=== PATIENT | female | born 1955 | race Caucasian/White ===

== ENCOUNTER 2024-04-22 16:04 | Inpatient (IN) | payer OTHER, SELFPAY ==
[2024-04-22] VITALS (11 sets, daily range): BP systolic 116–172; BP diastolic 56–85; BMI 24.3; BMI 24.9
[2024-04-22] MEDS: MORPHINE SULFATE 4 MG IV ×3 (10:27→14:49)
[2024-04-22] MEDS: ZOFRAN 4 MG IV (10:27)
--- NOTE | 2024-04-22 10:34 | ED.GENMED ---
History of Present Illness
General
Chief Complaint: Chest Pain
Source: patient and spouse
Time Seen by Provider: 04/22/24 09:51
History of Present Illness
History of Present Illness:
68-year-old female who presents with right flank/right mid back pain. Patient states she has had a cough for few weeks after recently having influenza. Patient is a history of collapsed lung as well as Hodgkin's lymphoma in remission. Patient
states that she is unable to lay back due to pain. Admits that she is not really short of breath but does hurt when she breathes deeply. Does hurt also when she moves. No rash noted by her. states that she did not sleep well last night.
Past History
Past History
ED Past Medical History: Cancer (Hodgkin's), HTN, Psychiatric (Depression) and Other (Hodgkins, 7 spontaneous Pneumothorax, Migraine)
ED Past Surgical History: Other (Splenectomy)
Social History
Tobacco: Former smoker
Alcohol: Occasional
Drug: None
Personal:
Living: with family
Employment: Not employed
Family History
Family History: Other (Noncontributory)
Phy Exam
Physical Exam
Physical Exam:
CONSTITUTIONAL Patient alert and oriented to person, place and time. Mild pain distress. Vital signs reviewed.
HEAD atraumatic, normocephalic.
EYES eyelids normal to inspection, Extraocular muscles intact, Conjunctiva normal, Sclera normal.
NECK normal range of motion, Trachea midline, no jugular venous distention.
RESPIRATORY CHEST No respiratory distress noted, Chest expansion equal, diminished at bilateral bases, obvious splinting noted
CARDIOVASCULAR regular rate and rhythm, Heart sounds normal.
ABDOMEN abdomen nontender, Bowel sounds normal. No distention.
BACK normal inspection, no obvious deformities, no rash noted, no gross tenderness
UPPER EXTREMITY range of motion normal, Motor strength normal, no cyanosis, no edema.
LOWER EXTREMITY range of motion normal, Motor strength normal, no cyanosis, no edema.
NEURO Speech normal, No focal motor deficits, Nikolay coma scale 15, Memory normal, Cranial Nerves intact to screening exam.
SKIN skin warm, dry, and normal in color.
Scores
Heart Score for Chest Pain Patients
STEMI patient?: Not applicable
Course
Orders/Labs/Results
Orders:
Orders
04/22/24 08:47
Electrocardiogram (*1) Urgent
Reason for Study: Chest Pain
EKG- Treatment ONCE
04/22/24 10:19
Morphine Sulfate 4 mg IV NOW STA
Ondansetron Injectable [Zofran] 4 mg IV NOW STA
CR Chest - 2 Views Urgent
Comment:
Reason For Exam: R cp, h/o PTX
04/22/24 10:26
Complete Blood Count/With Diff Urgent
Comprehensive Metabolic Panel Urgent
04/22/24 11:40
Morphine Sulfate 4 mg IV NOW STA
04/22/24 11:41
CT Chest Pe Study Urgent
Comment:
Reason For Exam: R sided cp
04/22/24 11:49
Diphenhydramine [Benadryl] 50 mg IV NOW STA
Hydrocortisone Sod Succinate [Solu-Cortef] 200 mg IV NOW STA
04/22/24 14:36
Apixaban [Eliquis] 10 mg PO NOW STA
04/22/24 14:37
CefTRIAXone [Rocephin] 1,000 mg IV NOW STA
Doxycycline [Vibramycin] 100 mg PO NOW STA
04/22/24 14:43
Morphine Sulfate 4 mg IV NOW STA
Abnormal Lab Results
04/22/24
10:26
WBC 15.9 H 10^3/uL
(4.8-10.8)
RBC 3.97 L 10^6/uL
(4.20-5.40)
MCH 31.5 H pg
(27.0-31.0)
Plt Count 458 H 10^3/uL
(130-400)
Abs Immat Gran (auto) 0.1 H 10^3/uL
(0-0.05)
Absolute Neuts (auto) 11.7 H 10^3/uL
(1.4-6.5)
Absolute Monos (auto) 1.4 H 10^3/uL
(0.1-0.6)
Lymphocytes % 17.2 L %
(20.5-51.1)
Glucose 113 H mg/dl
(70-99)
04/22/24 10:26
04/22/24 10:26
Vital Signs
Initial and Last Documented VS:
Initial Vital Signs
Temp Pulse Resp BP Pulse Ox
99.3 F 93 16 158/77 94
04/22/24 08:45 04/22/24 08:45 04/22/24 08:45 04/22/24 08:45 04/22/24 08:45
Last Documented Vital Signs
Temp Pulse Resp BP Pulse Ox
99.3 F 83 15 172/85 94
04/22/24 08:45 04/22/24 10:00 04/22/24 10:00 04/22/24 10:00 04/22/24 12:01
MDM/Problems Addressed
Differential Diagnosis Includes:
Pneumothorax, pulmonary embolism, pneumonia, intercostal muscle strain
MDM/Problems Addressed:
Acute pulmonary embolism, acute pneumonia
*Pulse Oximetry
Patient hypoxic: yes
*EKG
Interpreted by ED Provider?: Yes
Interpretation: normal
Rate: normal
Rhythm: sinus
[place]: normal axis
QRS Pattern: normal QRS
Ischemia: no ischemia
*Validation Intern Interpretation
Rate: normal
Interpretation: normal
Rhythm: sinus
*Critical Care Note
Total Time (30-74mins, 75-104mins- exclusive of procedures): Not Applicable
Data Reviewed
Source: patient and spouse
Prescriptions/Medications Considered But Not Given:
Consider heparin but I think reasonable to start Eliquis
Patient Management
Discussion with other providers: Hospitalist
Escalation/DeEscalation of care consider admission/obs:
68-year-old female presents with pleuritic right-sided pain. Found to be mildly hypoxic. CT shows small volume pulmonary emboli bilaterally. Also with slight leukocytosis, low-grade fever and coughing question whether could be component of
pneumonia. I do think is reasonable to treat her with antibiotics as well but given mild hypoxia and persistent pain, admit
2:51 PM patient admits that she had a penicillin allergy as a child. Given her multiple allergies I think it is reasonable to trial ceftriaxone. Unable to take fluoroquinolones. Unable to take vancomycin. Has no known cephalosporin allergy
ED Attending Note
-
Portions of this chart may have been created with voice recognition software.� Occasional wrong word or��sound alike� substitutions may have occurred due to the inherent limitations of voice recognition software.
Discharge Plan
Departure
Patient Disposition: Admit
Date of Disposition: 04/22/24
Time of Disposition: 14:35
Admit to: Telemetry
Presentation/result/management discussed w/ accepting MD/DO: Hospitalist
Discharge Problem:
Pulmonary embolism, Pneumonia
Prescriptions:
No Action
zolpidem 10 MG tablet
10 mg PO HS
losartan 50 mg Tablet
50 mg PO DAILY
escitalopram oxalate [Lexapro] 10 mg Tablet
10 mg PO DAILY
Collagen Skin Renewal 30-833.3 mg Tablet
1 tab PO DAILY
Super Beets
1 packet PO DAILY
Turmeric Powder
1 packet PO DAILY
Referrals:
Ayiana Zhang MD [Family Provider] -
Interventions
Interventions:
*Risk Screen - Suicide Last Done: 04/22/24 08:47
*Neglect/Abuse Screening Last Done: 04/22/24 08:47
*ED COVID-19 Vaccine History Last Done: 04/22/24 08:47
ED- Cardiac Assessment Last Done: 04/22/24 10:11
ED- Pulmonary Assessment Last Done: 04/22/24 10:11
Discharge Date and Time
Print Language: ESTONIAN
[2024-04-22 10:48] LABS: % Basophils 0.4 % (0-2); % Eosinophils 0.1 % (0-6); % Immature Granulocytes 0.5 % (0-0.5); % Lymphocytes 17.2 % (20.5-51.1); % Monocytes 8.5 % (1.7-9.3); % Neutrophils 73.3 % (42.2-75.2); Absolute Basophils 0.1 10^3/uL (0-0.2); Absolute Immature Granulocytes 0.1 10^3/uL (0-0.05); Absolute Lymphocytes 2.7 10^3/uL (1.2-3.4); Absolute Monocytes 1.4 10^3/uL (0.1-0.6); Absolute Neutrophils 11.7 10^3/uL (1.4-6.5); Hematocrit 37.9 % (37.0-47.0); Hemoglobin 12.5 g/dL (12.0-16.0); Mean Corpuscular Hgb 31.5 pg (27.0-31.0); Mean Corpuscular Volume 95.5 fL (81.0-99.0); Mean Platelet Volume 9.1 fL (7.4-10.4); Nucleated Red Blood Cells % 0 %; Platelet Count 458 10^3/uL (130-400); Red Blood Cell Count 3.97 10^6/uL (4.20-5.40); Red Cell Dist. Width 13.5 % (11.5-14.5); White Blood Cell Count 15.9 10^3/uL (4.8-10.8)
[2024-04-22 10:57] LABS: ALT (SGPT) 20 U/L (0-35); AST (SGOT) 21 U/L (14-36); Albumin 4.4 g/dl (3.5-5.0); Alkaline Phosphatase 73 U/L (38-126); Blood Urea Nitrogen 15 mg/dl (7-17); Calcium 9.5 mg/dl (8.4-10.2); Carbon Dioxide 23 mmol/L (22-30); Chloride 102 mmol/L (98-107); Glucose 113 mg/dl (70-99); Potassium 4.3 mmol/L (3.5-5.1); Sodium 138 mmol/L (135-145); Total Bilirubin 0.9 mg/dl (0.2-1.3); eGFR > 60.00
[2024-04-22] MEDS: SOLU-CORTEF 200 MG IV (11:54)
[2024-04-22] MEDS: BENADRYL 50 MG IV (11:54)
[2024-04-22] MEDS: ELIQUIS 10 MG PO ×2 (14:49→20:13)
--- NOTE | 2024-04-22 15:10 | HPS.HSE ---
Family Physician
-
Family Physician: Aiyana Zhang
Chief Complaint
-
right flank/right mid back pain
History of Present Illness
HPI
68 F Former smoker, NHL in remission , spontaneous Pneumothorax seen at ER :
- evalaution for right flank/right mid back pain
- has had a cough for few weeks after recently having influenza
- HX collapsed lung as well as NHL in remission
Medical History
Past Medical History
Past Medical History: Reports Cancer (NHL in remission ), HTN, Psychiatric (anxiety and depression ) and Other
Additional Past Medical History:
spontaneous Pneumothorax
Migraine
Past Surgical History: Reports Other (splenectomy )
Social History
Tobacco: Former Smoker
Alcohol: None
Drug: None
Family History
Family History: Not pertinent
Allergies / Home Medications
Allergies reflects when Allergies were last updated in [facility].
Home Medications with original date entered in [facility]
Allergy/Medication List:
Allergies
Allergy/AdvReac Type Severity Reaction Status Date / Time
aspirin Allergy stomach Verified 05/20/19 09:19
pain
Cephalosporins Allergy allergy to Verified 05/20/19 09:19
penicillin
hydromorphone [From Dilaudid] Allergy Itching Verified 05/20/19 09:19
hydroxyzine Allergy not to Verified 05/20/19 09:19
take d/t
type of
migraine
pt has
Iodinated Contrast Media Allergy Swelling, Verified 05/20/19 09:19
hives
levofloxacin [From Levaquin] Allergy pustules Verified 05/20/19 09:19
on neck
NSAIDS (Non-Steroidal Allergy Stomach Verified 05/20/19 09:19
Anti-Inflamma pain
penicillin V Allergy Swelling Verified 05/20/19 09:19
Penicillins Allergy Swelling Verified 05/20/19 09:19
Salicylates * Allergy asa-stomach Verified 05/20/19 09:19
pains
sumatriptan Allergy imitrex Verified 05/20/19 09:19
allergy
sumatriptan succinate Allergy heart Verified 05/20/19 09:19
[From Imitrex] palpitations,lump
in throat
feeling
vancomycin Allergy Itching Verified 05/20/19 09:19
Home Medications
zolpidem 10 mg tablet 10 mg PO HS 04/01/17
Super Beets 1 packet PO DAILY 04/22/24
Turmeric Powder 1 packet PO DAILY 04/22/24
ascorbic acid 30 mg-collagen, hydrolyzed 833.3 mg tablet (Collagen Skin Renewal) 1 tab PO DAILY 04/22/24
escitalopram oxalate 10 mg tablet (Lexapro) 10 mg PO DAILY 04/22/24
losartan 50 mg tablet 50 mg PO DAILY 04/22/24
Review of Systems
-
Constitutional: Reports No Symptoms
EENT: Reports No Symptoms
Respiratory: Reports See HPI and Other (pleuritic quality CP )
Cardiac: Reports No Symptoms
Abdomen/GI: Reports No Symptoms
: Reports No Symptoms
Musculoskeletal: Reports No Symptoms
Skin: Reports No Symptoms
Neurological: Reports No Symptoms
Endocrine: Reports No Symptoms
Hematologic/Lymphatic: Reports No Symptoms
Psych: Reports No Symptoms
Physical Exam
Vital Signs
Vital Signs
Temp Pulse Resp BP Pulse Ox
99.3 F 83 15 172/85 94
04/22/24 08:45 04/22/24 10:00 04/22/24 10:00 04/22/24 10:00 04/22/24 12:01
Physical Exam
General: Well Developed, Well Nourished and No Apparent Distress
HEENT: NormoCephalic, Moist mucous membranes and Atraumatic
Respiratory: Clear
Cardiac: S1/S2 and Regular Rhythm; No Murmur or Rub
GI: Soft, Non Tender, Non Distended and Normal Bowel Sounds; No Organomegaly
Rectal: Deferred by Provider
Musculoskeletal: No Clubbing, No Cyanosis and No Edema
Skin: No Rash
Neuro: Nonfocal/grossly intact
Laboratory Results
-
04/22/24 10:26
04/22/24 10:26
Laboratory Results
Total Bilirubin 0.9 mg/dl (0.2-1.3) 04/22/24 10:26
AST 21 U/L (14-36) 04/22/24 10:26
ALT 20 U/L (0-35) 04/22/24 10:26
Alkaline Phosphatase 73 U/L (38-126) 04/22/24 10:26
Data Reviewed
-
CT Scan: Report Reviewed by me
Lab Data: Labs Reviewed by me
Old Records: Reviewed
Impression/Plan
-
Laboratory Tests
05/19/22 04/22/24
19:45 10:26
WBC 11.0 H 15.9 H
Plt Count 385 458 H
Creatinine 0.6
eGFR > 60.00
CT Chest Pe Study
Small pulmonary embolism volume, small filling defect in the right lower lobe lateral basal subsegmental pulmonary artery and left lower lobe posterior medial basal subsegmental pulmonary artery. No evidence of right ventricular heart strain.
Mild right infrahilar and suprahilar adenopathy.
Small right pleural effusion. There may be a small loculated component in the posterior right costophrenic angle.
Bibasilar parenchymal opacity is demonstrated, right greater than left. Differential including atelectasis versus pneumonia.
In the lateral right lower lobe there is a 7.4 mm nodule, which measured 6 mm 2017. Relative interval stability supporting benign etiology.
Last hospitalist admission:
DATE OF ADMISSION: 04/01/2017 - DATE OF DISCHARGE: 04/06/2017
DC Dx: PNA
ASSESSMENT & PLAN
HX Poly pharmacy allergy including LVQ and PCN
Acute small subsegmental PE ? provoked
NEG CT evidence of RHS
Hemodynamically stable
Associated Pleuritic CP
Recent 5 [address] to [place] - she drove
- Firs peterson of Eliquis 10 mg at ER
- cont. Eliquis 10mg BIF for 7 days then 5 mg BID
- IV Morphine PRN for Rt pleuritic pain
Bibasilar parenchymal opacity right greater than left.
Differential : atelectasis versus pneumonia.
Afebrile , elevated WCC
Recent Flu and cough
HX Splenectomy
HX tolerating CFTZ, CFP, cefuroxime per clinical pharmacist
- check PCT
- Empiric IV CFTZ and PO Doxy
HX NHL on remission
S/P splenectomy
Benign HTN
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
Depression
- cont Lexapro
DVT Px: Eliquis
Code: Full
IP TLM
[2024-04-22] MEDS: VIBRAMYCIN 100 MG PO (15:16)
[2024-04-22] MEDS: ROCEPHIN 1000 MG IV (15:16)
[2024-04-22] MEDS: VIBRAMYCIN PO ×2 (18:32)
[2024-04-22] MEDS: MORPHINE SULFATE 2 MG IV (20:14)
[2024-04-22] MEDS: AMBIEN 10 MG PO (22:06)
[2024-04-23 03:00] VITALS: BP 126/62
[2024-04-23] MEDS: MORPHINE SULFATE 2 MG IV ×4 (03:29→20:10)
[2024-04-23] MEDS: VIBRAMYCIN 100 MG PO ×2 (05:29→18:00)
[2024-04-23 07:40] LABS: Procalcitonin 0.06 ng/ml (0.0-0.25)
[2024-04-23 08:22] VITALS: BP 98/47
--- NOTE | 2024-04-23 09:06 | CON.PUL ---
Consultation
Consultation Request
Date/Time Consultation Requested: 04/23/2024618
Date/Time Consultation Performed: 04/23/2024849
Requesting Provider: JONATHAN Carlton
Performing Provider: Dr. Sorensen
Reason for Consultation: PNA
Medical History
-
Chief Complaint: Chest Pain
History of Present Illness:
68-year-old former smoker with a PMHx of Hodgkin's lymphoma s/p chemo and splenectomy (1986), Hx of pyelonephritis, depression and migraine headaches who p/w right-sided chest pain for few days. Pain began suddenly. She also developed fever and
cough. She has a Hx of a spontaneous PTX so she was worried this was happening again. In the ER, she was afebrile to 99.3F, DE: 93, BP: 158/77, RR: 16, and SpO2: 94% on room air. Labs showed leukocytosis to 15.9 and plt count 458. CXR showed
bibasilar subsegmental atelectasis, and subsequent CTA chest small filling defects in the subsegmental lower lobes, right hilar lymphadenopathy, and bibasilar parenchymal opacification. There is a 7.4mm nodule in the lateral RLL (previously 6mm in
2016). Eliquis was started, and she was admitted to telemetry. Pulmonary service now consulted for additional management/recommendations.
When I saw the pt she was resting in bed in NAD on 2L/min, breathing comfortably. She admits that she recently drove to and from [place], which is about [address] She did not stop along the way to take breaks. 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 She currently denies SOB, she has no personal Hx of blood clots. Her brother had a blood clot but this was after he had surgery. The pt says that about 4-6 weeks ago she had the flu. She has had a cough since that time
that is bothersome - she does not take any inhalers. 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 She endorses fatigue, and pain in her hips - denies any recent fall. She denies HAMMOND, abd pain, N/V/fever/chills.
PMHx: HTN, anal condyloma, Hodgkin's lymphoma s/p chemo + splenectomy (1986), Hx of spontaneous PTX, Hx of pyelonephritis, depression and migraine headaches, former tobacco smoker
PSHx: Splenectomy (1986), Neck lymph node excision (1986), breast augmentation, excision/fulguration of anal condyloma, blephoplasty (11/2020)
Past Medical History
Past Medical History: Other (Above as per HPI)
Past Surgical History: Other (Above as per HPI)
Social History
Tobacco: Former Smoker (Quit smoking 25-30 years ago)
Alcohol: Occasional
Drug: None
Employment: Retired
Family History
Family History: Cancer (Father: Lung cancer ) and Hypertension (Mother)
Allergies / Home Medications
Allergies
Allergy/AdvReac Type Severity Reaction Status Date / Time
aspirin Allergy stomach Verified 05/20/19 09:19
pain
Cephalosporins Allergy allergy to Verified 05/20/19 09:19
penicillin
hydromorphone [From Dilaudid] Allergy Itching Verified 05/20/19 09:19
hydroxyzine Allergy not to Verified 05/20/19 09:19
take d/t
type of
migraine
pt has
Iodinated Contrast Media Allergy Swelling, Verified 05/20/19 09:19
hives
levofloxacin [From Levaquin] Allergy pustules Verified 05/20/19 09:19
on neck
NSAIDS (Non-Steroidal Allergy Stomach Verified 05/20/19 09:19
Anti-Inflamma pain
penicillin V Allergy Swelling Verified 05/20/19 09:19
Penicillins Allergy Swelling Verified 05/20/19 09:19
Salicylates * Allergy asa-stomach Verified 05/20/19 09:19
pains
sumatriptan Allergy imitrex Verified 05/20/19 09:19
allergy
sumatriptan succinate Allergy heart Verified 05/20/19 09:19
[From Imitrex] palpitations,lump
in throat
feeling
vancomycin Allergy Itching Verified 05/20/19 09:19
Home Medications
�Medication �Instructions �Recorded �Confirmed �Last Taken �Type
zolpidem 10 mg tablet 10 mg PO HS Sleep 04/01/17 04/22/24 04/21/24 History
Super Beets 1 packet PO DAILY Supplement 04/22/24 04/22/24 Unknown History
Turmeric Powder 1 packet PO DAILY Supplement 04/22/24 04/22/24 Unknown History
ascorbic acid 30 mg-collagen, 1 tab PO DAILY Supplement 04/22/24 04/22/24 Unknown History
hydrolyzed 833.3 mg tablet
(Collagen Skin Renewal)
escitalopram oxalate 10 mg tablet 10 mg PO DAILY Mental 04/22/24 04/22/24 04/22/24 History
(Lexapro) Health/Anxiety
losartan 50 mg tablet 50 mg PO DAILY Blood Pressure 04/22/24 04/22/24 04/22/24 History
Review of Systems
-
History Source: Patient
All other systems: Negative unless noted
Vitals / Labs / Diagnostic Testing
Vital Signs
Temp Pulse Resp BP Pulse Ox
98.2 F 75 20 98/47 93
04/23/24 08:22 04/23/24 08:22 04/23/24 08:22 04/23/24 08:22 04/23/24 08:22
Lab Data
04/22/24 10:26
04/22/24 10:26
Diagnostic Testing:
Physical Exam
-
HEENT: Normocephalic and Anicteric
Cardiovascular: S1/S2 and Peripheral Edema (negative)
Respiratory: Wheeze (negative), Rales (negative), Rhonchi (bibasilar) and Accessory Resp Muscle Use (negative)
GI: Soft, Non Distended, Non Tender and Normal Bowel Sounds
Neurology: AO x 3 and Tremors (negative)
Skin: Warm and Dry
General: Respiratory Distress (negative), Comfortable, Fever (negative) and Chills (negative)
Assessment
-
Assessment: 68-year-old non-smoker with a PMHx of Hodgkin's lymphoma s/p chemo and splenectomy (1986), Hx of pyelonephritis, depression and migraine headaches who p/w right-sided chest pain for few days. Pain began suddenly. She also developed
fever and cough. She has a Hx of a spontaneous PTX so she was worried this was happening again. In the ER, she was afebrile to 99.3F, DE: 93, BP: 158/77, RR: 16, and SpO2: 94% on room air. Labs showed leukocytosis to 15.9 and plt count 458. CXR
showed bibasilar subsegmental atelectasis, and subsequent CTA chest small filling defects in the subsegmental lower lobes, right hilar lymphadenopathy, and bibasilar parenchymal opacification. There is a 7.4mm nodule in the lateral RLL (previously
6mm in 2017). Eliquis was started, and she was admitted to telemetry. Pulmonary service now consulted for additional management/recommendations.
Chronic conditions CHEF: HTN, anal condyloma, Hodgkin's lymphoma s/p chemo + splenectomy (1986), Hx of spontaneous PTX, Hx of pyelonephritis, depression and migraine headaches
Impression:
#Acute submassive bilateral lower lobe pulmonary embolism without RV strain (PESI score: 100 - Class III, intermediate risk with 3.2-7.1% 30-day mortality)
#Leukocytosis - likely reactive due to above but unable to rule out pneumonia, kali in the RLL that appears more organized than the LLL
#Thrombocytosis - likely reactive due to above
#Acute respiratory failure with hypoxia on supplemental oxygen due to above
#Recent flu 4-6 weeks ago with post-infectious cough
#Hx of Hodgkin's lymphoma (Dx in 1996) s/p chemo and splenectomy
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
#Hx of spontaneous pneumothorax
#Hx of HTN
#Depression
#Former tobacco smoker (quit smoking 25-30 years ago)
Plan:
- Continue systemic anticoagulation with Eliquis
- Case management consult to assess cost of NOAC, preferably Eliquis
- Bedrest x 24 hrs
- Check echo to assess R-sided pressures
- Check LE duplex to assess for DVT
- Outpatient pulmonary office follow up for full PFTs with diffusing capacity
- Patient has low risk acute PE, and there is no indication for CDT or suction thrombectomy
- Pain control
- Outpatient visit with Hematology for hypercoagulable workup
- Maintain SpO2 >90-94% with supplemental O2 and wean as tolerated
- If resting SaO2 <96% on room air at rest, then check ambulatory pulse oximetry prior to discharge
- Given her post-infectious cough, I will start a LABA/ICS with Symbicort, and she should be DC'd home on this and use this inhaler until her Sx resolve
- Given possible pneumonia (especially in RLL), pt currently on rocephin/doxy. Continue empiric treatment and trend WBC and monitor for fevers
- If she can produce a decent sample, then check sputum Cx; check legionella + Strep PNA urine antigens
- If WBC normalizes and she remains afebrile in 48 hrs, then consider stopping ABx vs short course (3-5 days)
- Incentive spirometer encouraged 10x per hour for at least 4 hrs a day
- Replete electrolytes with K>4, Mg>2
- Maintain euglycemia with goal BG >100 and <180
- prn nebulized bronchodilators - not currently bronchospastic
- DVT ppx: Eliquis
Pulmonary service will continue to follow along. Outpatient office follow up will be arranged.
(Patient was seen and evaluated on 04/23/2024)
Data:
CTA Chest 04/22/2024:
Small pulmonary embolism volume, small filling defect in the right lower lobe lateral basal subsegmental pulmonary artery and left lower lobe posterior medial basal subsegmental pulmonary artery. No evidence of right ventricular heart strain.
Mild right infrahilar and suprahilar adenopathy.
Small right pleural effusion. There may be a small loculated component in the posterior right costophrenic angle.
Bibasilar parenchymal opacity is demonstrated, right greater than left. Differential including atelectasis versus pneumonia.
In the lateral right lower lobe there is a 7.4 mm nodule, which measured 6 mm 2017. Relative interval stability supporting benign etiology.
Total time spent today was 58 minutes for this encounter. Time includes reviewing laboratory test/imaging results, reviewing pertinent medical records, obtaining and reviewing medical history, performing an appropriate exam, ordering medications,
tests and procedures. Time also includes documentation of this encounter, coordinating patient care and communicating with other healthcare professionals. Total time does not include separately billed tests performed on this date of service.
[2024-04-23] MEDS: COZAAR 50 MG PO (09:50)
[2024-04-23] MEDS: ELIQUIS 10 MG PO ×2 (09:50→19:52)
[2024-04-23] MEDS: MIRALAX 17 GRAMS PO (09:52)
[2024-04-23] MEDS: LEXAPRO 10 MG PO (09:55)
[2024-04-23 12:54] VITALS: BP 106/64
--- NOTE | 2024-04-23 14:52 | CM ---
Addendum entered by Ashley Diallo 04/23/24 16:04:
Linaquis out of pocket cost is $47.00 for 30 day supply; Attending notified
Addendum entered by Ashley Diallo 04/23/24 15:00:
CM consult completed: Advance Directive information packet provided
Original Note:
Patient currently off the unit in [place]; Initial Assessment completed with Significant Other
Pharmacy verified; [facility] @ [address], [place]
Patient and significant other, Vincenzo Monsalve, live in a multilevel home; 10 steps to enter; 8 steps between floors; powder room on main level; 2nd floor bath has stall shower w/seat
PLOF: patient is independent with ambulation, stairs, and ADLs
No SNF or Home Health utilization history
Significant other will transport home
No DME
Plan: anticipate discharge to home when medically stable; CM will monitor for discharge needs
--- NOTE | 2024-04-23 15:30 | W.PN.HOSP.TC ---
Today's Communication/Plan
-
CM to [facility] Eliquis
US b/l LE pending
cont rocephin/doxy
add IS
ECHO Wednesday
Assessment / Plan
Assessment / Plan
pt is a 68 year old female
Acute small subsegmental PE provoked from long car ride (5 1/2 hours nonstop)--no call for lytics--started on Eliquis--will need CM to [facility]--cont meds for pain control--apprec pulm--will need ECHO--US r/o DVT pending
Bibasilar parenchymal opacity right greater than left-- likely PNA--had recent flu and never got rid of the cough--cont rocephin and doxy for now--IS added
HX Splenectomy /HX NHL on remission
essential HTN - cont Losartan
Depression - cont Lexapro
DVT proph--Eliquis
code status--full code
Anticipated Discharge: > 48 hours
Subjective/Interval History
-
Date of Service: April 23, 2024
pt c/o right sided back pain with inspiration
Objective Data
-
Vital Signs:
max temp for 24 hours
04/22/24
19:47
Temp 98.4 F
Vital Signs
Temp Pulse Resp BP Pulse Ox
97.6 F 80 19 106/64 94
04/23/24 12:54 04/23/24 12:54 04/23/24 12:54 04/23/24 12:54 04/23/24 12:54
I&O
04/22/24 04/23/24 04/24/24
06:59 06:59 06:59
Intake Total 840 / 840
Balance 840 / 840
Review of Systems
-
All other systems: Reviewed and negative
Respiratory: Reports Trouble Breathing
Cardiac: Reports Chest Pain (back pain right sided with inspiration)
Physical Exam
-
General: Well Developed, Well Nourished and No Apparent Distress
HEENT: Normocephalic, Atraumatic and Oxygen
Respiratory: Crackles (right base)
Cardiac: Regular Rhythm and S1/S2; Negative Murmur
GI: Soft, Nontender, Nondistended and Normal Bowel Sounds
Musculoskeletal: No Clubbing, No Cyanosis and No Edema
Skin: Warm
Neuro: Awake
Psych: Calm
[2024-04-23 16:34] VITALS: BP 115/62
[2024-04-23] MEDS: STERILE WATER FOR INJECTION 10 ML IV (17:59)
[2024-04-23] MEDS: ROCEPHIN 1000 MG IV (18:00)
[2024-04-23 19:21] VITALS: BP 131/58
[2024-04-23] MEDS: SYMBICORT 160/4.5 MCG INHALER 2 PUFF INH (19:31)
[2024-04-23] MEDS: AMBIEN 10 MG PO (21:53)
[2024-04-23 23:00] VITALS: BP 110/51
[2024-04-24] MEDS: MORPHINE SULFATE 2 MG IV ×5 (00:11→19:48)
[2024-04-24 03:00] VITALS: BP 121/64
[2024-04-24] MEDS: VIBRAMYCIN 100 MG PO ×2 (05:36→18:10)
[2024-04-24 07:02] VITALS: BP 136/65
[2024-04-24 07:22] LABS: Hematocrit 33.7 % (37.0-47.0); Hemoglobin 11.6 g/dL (12.0-16.0); Mean Corp Hgb Conc. 34.4 g/dL (33.0-37.0); Mean Corpuscular Hgb 33.3 pg (27.0-31.0); Mean Corpuscular Volume 96.8 fL (81.0-99.0); Mean Platelet Volume 9.5 fL (7.4-10.4); Platelet Count 464 10^3/uL (130-400); Red Blood Cell Count 3.48 10^6/uL (4.20-5.40); Red Cell Dist. Width 13.6 % (11.5-14.5)
[2024-04-24] MEDS: SYMBICORT 160/4.5 MCG INHALER 2 PUFF INH ×2 (07:30→19:20)
[2024-04-24 07:48] LABS: Blood Urea Nitrogen 32 mg/dl (7-17); Calcium 8.7 mg/dl (8.4-10.2); Carbon Dioxide 23 mmol/L (22-30); Chloride 103 mmol/L (98-107); Estimated Creatinine Clearance 66 ml/min; Glucose 113 mg/dl (70-99); Magnesium 2.1 mg/dl (1.6-2.3); Potassium 4.3 mmol/L (3.5-5.1); Sodium 136 mmol/L (135-145); eGFR > 60.00
[2024-04-24] MEDS: ELIQUIS 10 MG PO ×2 (08:45→22:30)
[2024-04-24] MEDS: COZAAR 50 MG PO (08:45)
[2024-04-24] MEDS: LEXAPRO 10 MG PO (08:45)
[2024-04-24] MEDS: MIRALAX 17 GRAMS PO (08:47)
[2024-04-24 11:13] VITALS: BP 126/61
--- NOTE | 2024-04-24 13:21 | W.PN.HOSP.TC ---
Today's Communication/Plan
-
Home O2 assessment
CM for Eluqis pricing
possible d/c afterwards
check COVID-19 and influenza
Assessment / Plan
Assessment / Plan
68yo F with PMHx of Hodgkins lymphoma, splenectomy, migraine, depression came with c/o right sided chest pain, fevers and found subsegmental pulmonary embolism with possible bibasilar pneumonia. Needs home O2 assessment.
A/P:
#Acute hypoxic respiratory insufficiency 2/2 pulmonary embolism and bibasilar pneumnonia with pleurisy
Neg for Legionella and S.pneumonia urinary Ag
Ceftriaxone/Doxy
Eliuqis and CM to work on getting co-payment info
Home O2 assessment
No DVT on US
No RH strain on echo
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
Check COVID-19 and Influenza PCR
#leukocytosis
#Thrombocytosis
reactive
follow CBC
#Hx of splenectomy
#Hx of hodgkins lymphoma
#Depression
#Essential HTN
cont home meds
DVT ppx on Elqiuis
Full code
I have spent at least 58min reviewing chart, test results, communication with counsultants and direct patient care
Anticipated Discharge: 24 - 48 hours
Subjective/Interval History
-
Date of Service: April 24, 2024
Objective Data
-
Labs:
Laboratory Results
04/24/24
06:49
WBC 16.0 H
Hgb 11.6 L
Hct 33.7 L
Plt Count 464 H
Sodium 136
Potassium 4.3
Chloride 103
Carbon Dioxide 23
BUN 32 H
Creatinine 0.8
Glucose 113 H
Calcium 8.7
Vital Signs:
Vital Signs
Temp Pulse Resp BP Pulse Ox
98.0 F 81 17 126/61 96
04/24/24 11:13 04/24/24 11:13 04/24/24 11:13 04/24/24 11:13 04/24/24 11:13
I&O
04/23/24 04/24/24 04/25/24
06:59 06:59 06:59
Intake Total 840 / 840 1440 / 1440
Balance 840 / 840 1440 / 1440
Review of Systems
-
History Source: Patient
All other systems: Reviewed and negative
Respiratory: Reports Pleurisy
Physical Exam
-
General: No Apparent Distress
HEENT: Normocephalic, Atraumatic and Moist Mucous Membranes
Respiratory: Clear to Auscultation
GI: Soft, Nontender and Nondistended
Musculoskeletal: No Clubbing, No Cyanosis and No Edema
Neuro: Awake, Alert, Oriented and AO x 3
Psych: Calm
--- NOTE | 2024-04-24 13:44 | W.PN.PUL3 ---
Addendum entered and electronically signed by Melany Sandhu DO 04/24/24 16:28:
No further recs from our standpoint, we will sign off at this time please call with questions
Original Note:
Today's Communication / Plan
-
Doing well, stable on RA--tolerating Eliquis
She feels fearful about going home due to stairs, can have PT eval
Otherwise, ok for discharge from our standpoint
D/c abx, procal negative
Will arrange OP FU with our office
Discharge planning per team
Assessment
-
68-year-old non-smoker with a PMHx of Hodgkin's lymphoma s/p chemo and splenectomy (1986), Hx of pyelonephritis, depression and migraine headaches who p/w right-sided chest pain for few days. Pain began suddenly. She also developed fever and
cough. She has a Hx of a spontaneous PTX so she was worried this was happening again. In the ER, she was afebrile to 99.3F, GA: 93, BP: 158/77, RR: 16, and SpO2: 94% on room air. Labs showed leukocytosis to 15.9 and plt count 458. CXR showed
bibasilar subsegmental atelectasis, and subsequent CTA chest small filling defects in the subsegmental lower lobes, right hilar lymphadenopathy, and bibasilar parenchymal opacification. There is a 7.4mm nodule in the lateral RLL (previously 6mm in
2016). Eliquis was started, and she was admitted to telemetry. Pulmonary service now consulted for additional management/recommendations.
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
Impression:
#Acute submassive bilateral lower lobe pulmonary embolism without RV strain (PESI score: 100 - Class III, intermediate risk with 3.2-7.1% 30-day mortality)
#Leukocytosis - likely reactive due to above but unable to rule out pneumonia, kali in the RLL that appears more organized than the LLL
#Thrombocytosis - likely reactive due to above
#Acute respiratory failure with hypoxia on supplemental oxygen due to above
#Recent flu 4-6 weeks ago with post-infectious cough
#Hx of Hodgkin's lymphoma (Dx in 1996) s/p chemo and splenectomy
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
#Hx of spontaneous pneumothorax
#Hx of HTN
#Depression
#Former tobacco smoker (quit smoking 25-30 years ago)
Plan:
Currently stable on RA
She is afraid to go home due to SOB
Continue systemic anticoagulation with Eliquis, tolerating well
Case management consult to assess cost of NOAC, preferably Eliquis
Encouraged ambulation, can have PT assess
Echo to assess R-sided pressures--reviewed stable
LE duplex to assess for DVT--negative
Outpatient pulmonary office follow up for full PFTs with diffusing capacity
Patient has low risk acute PE, and there is no indication for CDT or suction thrombectomy
Pain control
Outpatient visit with Hematology for hypercoagulable workup
Maintain SpO2 >90-94% with supplemental O2 and wean as tolerated
If resting SaO2 <96% on room air at rest, then check ambulatory pulse oximetry prior to discharge
Given her post-infectious cough, I will start a LABA/ICS with Symbicort, and she should be DC'd home on this and use this inhaler until her Sx resolve
Given possible pneumonia (especially in RLL), pt currently on rocephin/doxy.
Procal negative, I think can stop abx and observe
- Incentive spirometer encouraged 10x per hour for at least 4 hrs a day
- Replete electrolytes with K>4, Mg>2
- Maintain euglycemia with goal BG >100 and <180
- prn nebulized bronchodilators - not currently bronchospastic
- DVT ppx: Eliquis
Pulmonary service will continue to follow along. Outpatient office follow up will be arranged.
Discharge planning per team
Data:
CTA Chest 04/22/2024: Small pulmonary embolism volume, small filling defect in the right lower lobe lateral basal subsegmental pulmonary artery and left lower lobe posterior medial basal subsegmental pulmonary artery. No evidence of right ventricular
heart strain.Mild right infrahilar and suprahilar adenopathy. Small right pleural effusion. There may be a small loculated component in the posterior right costophrenic angle. Bibasilar parenchymal opacity is demonstrated, right greater than left.
Differential including atelectasis versus pneumonia.In the lateral right lower lobe there is a 7.4 mm nodule, which measured 6 mm 2017. Relative interval stability supporting benign etiology.
ECHO 04/24/24- Normal left ventricular size, wall thickness and systolic function. No regional wall motion abnormalities are seen. LV ejection fraction is 55-60% by visual assessment. Normal diastolic function. Normal right ventricular size and
function.
Duplex 04/23/24- No evidence of right or left lower extremity deep venous thrombosis.
-----
Total time spent today was 51 minutes for this encounter. Time includes reviewing laboratory test/imaging results, reviewing pertinent medical records, obtaining and reviewing medical history, performing an appropriate exam, ordering medications,
tests and procedures. Time also includes documentation of this encounter, coordinating patient care and communicating with other healthcare professionals. Total time does not include separately billed tests performed on this date of service.
Subjective Data
-
Date of Service:
Date of Service: April 24, 2024
Chief Complaint: Pulmonary Follow Up
Subjective:
Doing well, stable on RA
Afraid to go home due to stairs
Objective Data
Data Reviewed
Vital Signs / I&O / Oxygen:
Vital Signs
Temp Pulse Resp BP Pulse Ox
98.0 F 81 17 126/61 96
04/24/24 11:13 04/24/24 11:13 04/24/24 11:13 04/24/24 11:13 04/24/24 11:13
Intake and Output
04/23/24 04/24/24 04/25/24
06:59 06:59 06:59
Intake Total 840 / 840 1440 / 1440
Balance 840 / 840 1440 / 1440
SaO2 96
Nasal Cannula flow liters per 2
minute
Physical Exam
General: Comfortable and Other (NAD)
HEENT: Normocephalic, Anicteric and Moist Mucous Membranes
Cardiovascular: S1-S2 and Regular Rhythm
Respiratory: Clear and Non-Labored Respirations
GI: Soft, Non Distended and Non Tender
Neurology: Awake, Alert, Oriented and No Motor Deficits
Skin: Warm, Dry and Good Color
Labs/Micro/Reports
Lab Data
04/24/24 06:49
04/24/24 06:49
Microbiology
04/24/24 10:44 Urine Legionella Urinary Antigen - Final
Negative for Legionella pneumophila Serogroup 1 antigen.
A negative result does not rule out the possiblity of
Legionella infection due to other serogroups or species of
Legionella. Clinical correlation is recommended.
04/24/24 10:44 Urine Streptococcus pneumoniae Antigen (M - Final
Negative for Streptococcus pneumoniae antigen.
A negative result does not exclude infection with
Streptococcus pneumoniae. Clinical correlation is
recommended.
--- NOTE | 2024-04-24 13:56 | CM ---
Reviewed chart, spoke with attending who stated that patient will need o2 and Eliquis upon discharge. Faxed H&P, Facesheet, Progress note from attending (last note), o2 Sat test, and script to [phone].
Attending also wanted for CM to discuss Eliquis with patient. Per previous CM note, relayed cost to patient and gave her a coupon to get one month free Eliquis.
Received return call back from Nathalia Graff at [facility], who stated that she will provide o2 tomorrow. She stated to let the patient know to answer call from them and to call [phone] upon leaving the hospital. Will relay to patient.
Plan: Case management will continue to follow and assist with discharge planning. Home with o2.
[2024-04-24 14:18] LABS: COVID-19 Antigen Negative (Negative)
[2024-04-24 15:00] VITALS: BP 105/48
--- NOTE | 2024-04-24 16:09 | W.PN.UPDATE ---
Update Note
Progress Note Update
#Back pain with dysuria
UA
CT abd/pelvis with concern for UTI
[2024-04-24] MEDS: ROCEPHIN 1000 MG IV (18:10)
[2024-04-24] MEDS: STERILE WATER FOR INJECTION 10 ML IV (18:10)
[2024-04-24 18:29] LABS: Urine Albumin Trace (Neg - Trace); Urine Bilirubin Negative (Negative); Urine Character Clear (Clear); Urine Color Yellow; Urine Glucose Negative (Negative); Urine Ketone Negative (Negative); Urine Leukocyte 2+ (Negative); Urine Nitrite Negative (Negative); Urine Occult Blood 1+ (Negative); Urine Urobilinogen Negative (Neg - 1+)
[2024-04-24 18:57] LABS: Urine Bacteria Moderate (Negative); Urine Red Blood Cell 0-2 /HPF (0-2); Urine Squamous Cell >30 /LPF (Few); Urine White Cell 16-20 /HPF (0-5)
[2024-04-24 19:00] VITALS: BP 146/69
[2024-04-24] MEDS: ZOFRAN 4 MG IV (19:53)
[2024-04-24] MEDS: AMBIEN 10 MG PO (22:30)
[2024-04-24 23:00] VITALS: BP 124/59
--- NOTE | 2024-04-24 23:10 | PTCARENOTE ---
pt with nausea/vomiting she relates to po Doxy. 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
[2024-04-25] MEDS: MORPHINE SULFATE 2 MG IV ×5 (03:31→21:58)
[2024-04-25] MEDS: FLUSH (NSS) 5 FLUSH IV (03:32)
--- NOTE | 2024-04-25 05:18 | PTCARENOTE ---
pt does not want to take her doxy po until seen by md- she strongly feels it made her sick x2 yesterday-
[2024-04-25 07:31] VITALS: BP 137/67
[2024-04-25] MEDS: SYMBICORT 160/4.5 MCG INHALER 2 PUFF INH ×2 (07:50→19:21)
[2024-04-25] MEDS: ELIQUIS 10 MG PO ×2 (07:54→21:54)
[2024-04-25] MEDS: LEXAPRO 10 MG PO (07:54)
[2024-04-25] MEDS: COZAAR 50 MG PO (07:54)
[2024-04-25 08:40] LABS: % Basophils 0.3 % (0-2); % Eosinophils 0.3 % (0-6); % Immature Granulocytes 0.4 % (0-0.5); % Lymphocytes 17.7 % (20.5-51.1); % Monocytes 7.7 % (1.7-9.3); % Neutrophils 73.6 % (42.2-75.2); Absolute Immature Granulocytes 0.1 10^3/uL (0-0.05); Absolute Lymphocytes 2.4 10^3/uL (1.2-3.4); Absolute Neutrophils 9.8 10^3/uL (1.4-6.5); Hematocrit 35.2 % (37.0-47.0); Mean Corp Hgb Conc. 34.1 g/dL (33.0-37.0); Mean Corpuscular Hgb 32.8 pg (27.0-31.0); Mean Corpuscular Volume 96.2 fL (81.0-99.0); Mean Platelet Volume 9.2 fL (7.4-10.4); Nucleated Red Blood Cells % 0 %; Platelet Count 518 10^3/uL (130-400); Red Blood Cell Count 3.66 10^6/uL (4.20-5.40); Red Cell Dist. Width 13.4 % (11.5-14.5); White Blood Cell Count 13.3 10^3/uL (4.8-10.8)
[2024-04-25] MEDS: VIBRAMYCIN PO (12:13)
[2024-04-25] MEDS: MIRALAX 17 GRAMS PO (12:13)
--- NOTE | 2024-04-25 12:48 | W.PN.HOSP.TC ---
Today's Communication/Plan
-
await Ucx
will follow Procalcitoning in AM to ensure no elevation in vew of atelectasis
Incentive spiromentry
Assessment / Plan
Assessment / Plan
68yo F with PMHx of Hodgkins lymphoma, splenectomy, migraine, depression came with c/o right sided chest pain, fevers and found subsegmental pulmonary embolism with possible bibasilar pneumonia. Needs home O2 assessment.
A/P:
#Acute hypoxic respiratory insufficiency 2/2 pulmonary embolism with pleurisy
#Stable subcentimeter RLL nodule
Neg for Legionella and S.pneumonia urinary Ag
With neg procalcitonin - as per respiratory stopped Abx. Consolidation seen most likely atelectasis
Eliquis and CM to work on getting co-payment info
Home O2 assessment
No DVT on US
No RH strain on echo
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
COVID-19 and Influenza PCR neg
#leukocytosis
#Thrombocytosis
reactive
follow CBC
#Dysuria
CT without hydronephrosis, nephrolithiasis
Ucx pending
Ceftriaxone
#Hx of splenectomy
#Hx of Hodgkin lymphoma
#Depression
#Essential HTN
cont home meds
DVT ppx on Elqiuis
Full code
I have spent at least 58min reviewing chart, test results, communication with consultants and direct patient care
Anticipated Discharge: Within 24 hours
Subjective/Interval History
-
Date of Service: April 25, 2024
Objective Data
-
Labs:
Laboratory Results
04/25/24
08:25
WBC 13.3 H
Hgb 12.0
Hct 35.2 L
Plt Count 518 H
Vital Signs:
Vital Signs
Temp Pulse Resp BP Pulse Ox
98.0 F 84 16 137/67 93
04/25/24 07:31 04/25/24 07:54 04/25/24 07:53 04/25/24 07:54 04/25/24 07:53
I&O
04/24/24 04/25/24 04/26/24
06:59 06:59 06:59
Intake Total 1440 / 1440 1380 / 1380
Balance 1440 / 1440 1380 / 1380
Review of Systems
-
History Source: Patient
All other systems: Reviewed and negative
Musculoskeletal: Reports Other (back pain, on inhalation)
Physical Exam
-
General: Well Nourished
HEENT: Normocephalic and Atraumatic
Respiratory: Clear to Auscultation
Cardiac: Regular Rhythm
GI: Soft, Nontender and Nondistended
Musculoskeletal: No Clubbing, No Cyanosis and No Edema
Neuro: Awake, Alert, Oriented and AO x 3
Psych: Calm
[2024-04-25 14:55] VITALS: BP 116/56
[2024-04-25] MEDS: ROCEPHIN 1000 MG IV (17:18)
[2024-04-25] MEDS: STERILE WATER FOR INJECTION 10 ML IV (17:19)
[2024-04-25] MEDS: AMBIEN 10 MG PO (21:57)
[2024-04-25] MEDS: FLUSH (NSS) 2 FLUSH IV (21:59)
[2024-04-25 23:13] VITALS: BP 114/54
[2024-04-26] MEDS: MORPHINE SULFATE 2 MG IV ×3 (05:34→14:10)
[2024-04-26] MEDS: FLUSH (NSS) 2 FLUSH IV (05:35)
[2024-04-26 07:00] VITALS: BP 120/57
[2024-04-26] MEDS: ELIQUIS 10 MG PO (07:51)
[2024-04-26] MEDS: LEXAPRO 10 MG PO (07:51)
[2024-04-26] MEDS: COZAAR 50 MG PO (07:52)
[2024-04-26] MEDS: MIRALAX 17 GRAMS PO (07:53)
[2024-04-26 07:54] LABS: % Basophils 0.3 % (0-2); % Immature Granulocytes 0.3 % (0-0.5); % Monocytes 7.8 % (1.7-9.3); % Neutrophils 73.6 % (42.2-75.2); Absolute Eosinophils 0.1 10^3/uL (0-0.7); Absolute Lymphocytes 1.8 10^3/uL (1.2-3.4); Absolute Monocytes 0.8 10^3/uL (0.1-0.6); Absolute Neutrophils 7.6 10^3/uL (1.4-6.5); Hematocrit 35.3 % (37.0-47.0); Hemoglobin 11.5 g/dL (12.0-16.0); Mean Corp Hgb Conc. 32.6 g/dL (33.0-37.0); Mean Corpuscular Hgb 31.8 pg (27.0-31.0); Mean Corpuscular Volume 97.5 fL (81.0-99.0); Mean Platelet Volume 9.2 fL (7.4-10.4); Nucleated Red Blood Cells % 0 %; Platelet Count 531 10^3/uL (130-400); Red Blood Cell Count 3.62 10^6/uL (4.20-5.40); Red Cell Dist. Width 13.2 % (11.5-14.5); White Blood Cell Count 10.3 10^3/uL (4.8-10.8)
[2024-04-26] MEDS: SYMBICORT 160/4.5 MCG INHALER 2 PUFF INH (08:26)
[2024-04-26 08:36] LABS: Procalcitonin < 0.05 ng/ml (0.0-0.25)
--- NOTE | 2024-04-26 11:11 | W.PN.HOSP.TC ---
Today's Communication/Plan
-
dc
Assessment / Plan
Assessment / Plan
68yo F with PMHx of Hodgkins lymphoma, splenectomy, migraine, depression came with c/o right sided chest pain, fevers and found subsegmental pulmonary embolism with possible bibasilar pneumonia. CM established 2L home O2, Eliquis co-pay $47 and
patient agreeable with it. Ucx neg but reasonable to complete 5 days of Cefdinir upon d/c. Developed localized R buttocks shingles - Valacyclovir for 7 days started. Medically stable for d/c today
A/P:
#Acute hypoxic respiratory insufficiency 2/2 pulmonary embolism with pleurisy
#Stable subcentimeter RLL nodule
Neg for Legionella and S.pneumonia urinary Ag
With neg procalcitonin - as per respiratory stopped Abx. Consolidation seen most likely atelectasis
Messi and CM to work on getting co-payment info
Home O2 assessment
No DVT on US
No RH strain on echo
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
COVID-19 and Influenza PCR neg
#leukocytosis
#Thrombocytosis
reactive
follow CBC
#Dysuria
CT without hydronephrosis, nephrolithiasis
Ucx neg
reasonable to complete 5 days of Cefdinir upon d/c
#Hx of splenectomy
#Hx of Hodgkin lymphoma
#Depression
#Essential HTN
cont home meds
#Shingles on L buttocks
valacyclovir 7 days
DVT ppx on Elqiuis
Full code
I have spent at least 38min reviewing chart, test results, communication with consultants and direct patient care
Anticipated Discharge: Today
Subjective/Interval History
-
Date of Service: April 26, 2024
Objective Data
-
Labs:
Laboratory Results
04/26/24
07:23
WBC 10.3
Hgb 11.5 L
Hct 35.3 L
Plt Count 531 H
Vital Signs:
Vital Signs
Temp Pulse Resp BP Pulse Ox
98.6 F 74 16 120/57 92
04/26/24 07:00 04/26/24 07:52 04/26/24 07:00 04/26/24 07:52 04/26/24 07:00
I&O
04/25/24 04/26/24 04/27/24
06:59 06:59 06:59
Intake Total 1380 / 1380 1280 / 1280
Balance 1380 / 1380 1280 / 1280
Review of Systems
-
History Source: Patient
All other systems: Reviewed and negative
Physical Exam
-
General: No Apparent Distress
Respiratory: Clear to Auscultation
Skin: Rash (R buttocks )
Neuro: Awake, Alert, Oriented and AO x 3
Psych: Calm
--- NOTE | 2024-04-26 11:23 | W.DCSUMMARY ---
Addendum entered and electronically signed by Buddy Ledesma MD 04/26/24 14:07:
On RA with pulse O2 sat>90%
Addendum entered and electronically signed by Buddy Ledesma MD 04/26/24 14:06:
Patient was on RA for >24h before d/c - she declined home O2
Original Note:
Discharge Summary
Discharge Data
Date of Admission: 04/22/24
Date of Discharge: 04/26/24
-
Pending Results: No
Hospital Course
68yo F with PMHx of Hodgkins lymphoma, splenectomy, migraine, depression came with c/o right sided chest pain, fevers and found subsegmental pulmonary embolism with possible bibasilar pneumonia. CM established 2L home O2, Eliquis co-pay $47 and
patient agreeable with it. Ucx neg but reasonable to complete 5 days of Cefdinir upon d/c. Developed localized R buttocks shingles - Valacyclovir for 7 days started. Procalcitonin neg on the day of d/c. Medically stable for d/c today
I have spent at least 38min reviewing chart, test results, communication with consultants and direct patient care
Patient was managed for:
#Acute hypoxic respiratory insufficiency 2/2 pulmonary embolism with pleurisy
#Stable subcentimeter RLL nodule
#leukocytosis
#Thrombocytosis
#Dysuria
#Hx of splenectomy
#Hx of Hodgkin lymphoma
#Depression
#Essential HTN
#Shingles on L buttocks
Discharge Plan
-
Patient Disposition: Home (Routine Discharge)
Discharge Diagnosis/Procedures: Pulmonary embolism
Diet: Regular
Activity: As tolerated
Referrals:
Kareem Sorensen MD [Active] - in three to four weeks (full PFTs on day of office visit)
Aiyana Zhang MD [Family Provider] -
Prescriptions:
New
valacyclovir 500 mg Tablet
1,000 mg PO TID Qty: 20 0RF
cefdinir 300 mg capsule
300 mg PO Q12H Qty: 10 0RF
Eliquis DVT-PE Treat 30D Start 5 mg (74 tabs) tablets,dose pack
See Rx Instructions .ROUTE .COMPLEX Qty: 74 0RF
Rx Instructions:
take 10mg BID last dose 04/28/24 in the evening and start 5mg BID in the morning of 04/29/24
Continued
zolpidem 10 MG tablet
10 mg PO HS
losartan 50 mg Tablet
50 mg PO DAILY
escitalopram oxalate [Lexapro] 10 mg Tablet
10 mg PO DAILY
Collagen Skin Renewal 30-833.3 mg Tablet
1 tab PO DAILY
Super Beets
1 packet PO DAILY
Turmeric Powder
1 packet PO DAILY
Discharge Orders:
Discharge Patient (As Directed); Ordered 04/26/24
Ordered By: Buddy Ledesma
Discharge Date and Time
Print Language: SAUDI ARABIAN
--- NOTE | 2024-04-26 14:37 | CM ---
Received indication from attending that patient is medically cleared for discharge. RN stated that patient is concerned because she got a text from her [facility] stating that they do not have the starter pack in stock and it will take a day to get it back
in. Placed a call to [facility] in [place], # in chart. Spoke with a compounding pharmacy technician named Chandu who consulted the pharmacist and confirmed that they do have 5mg Eliquis in stock and have enough pills that patient would have the amount she needs.
Talked to attending who stated that he will write electronic script for 5mg Eliquis tablets for the length of time she needs.
Met with patient who was agreeable to this and appreciative. RN and patient's tech stated that patient has been on room air for the past two days. Spoke with patient who stated that she does not want o2 as she feels a lot better.
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
Patient confirmed that she has transportation home.
Plan: Case management will continue to follow and assist with discharge planning. Home.
[2024-04-26 15:15] VITALS: BP 148/63
== END 2024-04-26 16:01 | disposition home or self-care (01) | DRG 175 ==
LOC: 3 WEST ACU 16:04
PROVIDERS: Internal Medicine; ADMITTING PHYSICIAN Internal Medicine; ATTENDING PHYSICIAN Internal Medicine; CONSULT PHYSICIAN Internal Medicine Critical Care Medicine; EMERGENCY PHYSICIAN Emergency Medicine; FAMILY PHYSICIAN Internal Medicine
DX: I26.99 Other pulmonary embolism without acute cor pulmonale (principal); J18.9 Pneumonia, unspecified organism; J96.01 Acute respiratory failure with hypoxia; D75.839 Thrombocytosis, unspecified; Z90.81 Acquired absence of spleen; Z85.71 Personal history of Hodgkin lymphoma; F32.A Depression, unspecified; I10 Essential (primary) hypertension; B02.9 Zoster without complications; G43.909 Migraine, unspecified, not intractable, without status migrainosus; R30.0 Dysuria; Z92.21 Personal history of antineoplastic chemotherapy; Z87.891 Personal history of nicotine dependence; Z80.1 Family history of malignant neoplasm of trachea, bronchus and lung; Z82.49 Family history of ischemic heart disease and other diseases of the circulatory system; Z88.0 Allergy status to penicillin; Z88.1 Allergy status to other antibiotic agents; A63.0 Anogenital (venereal) warts; F41.9 Anxiety disorder, unspecified; Z11.52 Encounter for screening for COVID-19
CPT/HCPCS: 71046; 71275; 74176; 80048; 80053; 81003; 81015; 83735; 84145; 85025; 85027; 87086; 87449; 87502; 87811; 87899; 93005; 93306; 93970; 94640; 96374; 96375; 96376; 99285; Q9967

== ENCOUNTER 2024-08-28 12:48 | Emergency (ER) | payer OTHER, SELFPAY ==
[2024-08-28 13:13] VITALS: BP 158/82
[2024-08-28 13:49] LABS: % Basophils 0.6 % (0-2); % Immature Granulocytes 0.2 % (0-0.5); % Lymphocytes 20.6 % (20.5-51.1); % Monocytes 7.4 % (1.7-9.3); % Neutrophils 71.2 % (42.2-75.2); Absolute Basophils 0.1 10^3/uL (0-0.2); Absolute Lymphocytes 2.1 10^3/uL (1.2-3.4); Absolute Monocytes 0.8 10^3/uL (0.1-0.6); Absolute Neutrophils 7.2 10^3/uL (1.4-6.5); Hematocrit 40.5 % (37.0-47.0); Hemoglobin 14.2 g/dL (12.0-16.0); Mean Corp Hgb Conc. 35.1 g/dL (33.0-37.0); Mean Corpuscular Hgb 32.1 pg (27.0-31.0); Mean Corpuscular Volume 91.4 fL (81.0-99.0); Mean Platelet Volume 9.5 fL (7.4-10.4); Nucleated Red Blood Cells % 0 %; Platelet Count 365 10^3/uL (130-400); Red Blood Cell Count 4.43 10^6/uL (4.20-5.40); Red Cell Dist. Width 13.2 % (11.5-14.5); White Blood Cell Count 10.1 10^3/uL (4.8-10.8)
[2024-08-28 13:56] LABS: Lactic Acid 1.1 mmol/L (0.7-2.0)
[2024-08-28 14:04] LABS: Troponin I < 0.012 ng/ml
[2024-08-28 14:20] LABS: COVID-19 Antigen Negative (Negative)
[2024-08-28 14:30] LABS: ALT (SGPT) 24 U/L (0-35); AST (SGOT) 33 U/L (14-36); Albumin 4.5 g/dl (3.5-5.0); Alkaline Phosphatase 61 U/L (38-126); Blood Urea Nitrogen 15 mg/dl (7-17); Calcium 9.5 mg/dl (8.4-10.2); Carbon Dioxide 20 mmol/L (22-30); Chloride 105 mmol/L (98-107); Glucose 110 mg/dl (70-99); Potassium 4.5 mmol/L (3.5-5.1); Sodium 138 mmol/L (135-145); Total Bilirubin 0.7 mg/dl (0.2-1.3); Total Protein 8.3 g/dl (6.3-8.2); eGFR > 60.00
--- NOTE | 2024-08-28 16:22 | ED.GENMED ---
History of Present Illness
General
Chief Complaint: Breathing Problem
Time Seen by Provider: 08/28/24 15:30
History of Present Illness
History of Present Illness:
69-year-old female with history of Hodgkin's lymphoma and splenectomy presents to the emergency department for evaluation of fever, cough, congestion, left-sided middle back pain, and leg discomfort for the past 3 days. Feels similar to when she
had pneumonia last year. Denies any shortness of breath at this time but states the coughing is becoming intolerable. Cough is generally dry nonproductive. No vomiting or diarrhea
Past History
Past History
ED Past Medical History: Cancer (Hodgkin's), HTN, Psychiatric (Depression) and Other (Hodgkins, 7 spontaneous Pneumothorax, Migraine)
ED Past Surgical History: Other (Splenectomy)
Social History
Tobacco: Former smoker
Alcohol: Occasional
Drug: None
Personal:
Living: with family
Employment: Not employed
Family History
Family History: Other (Noncontributory)
Review of Systems
Review of Systems
Allergies reviewed?: Yes
All Other Systems: ROS reviewed and negative except as documented in HPI and ROS
Phy Exam
Physical Exam
Physical Exam:
GEN: Well appearing, NAD, WDWN
HEENT: Oral mucosa moist, no scleral icterus
Cardiac: Regular rate and rhythm, no murmur
Lung: No respiratory distress, no tachypnea, coarse rhonchi heard in the left lower field with scant wheezes heard throughout all mims
MSK: No gross deformity or injuries
Skin: Good color, no pallor or jaundice, no rashes
Neuro: AO x3, moves all extremities freely
Psych: Calm, cooperative
Scores
Heart Failure Risk
Heart Failure Risk Score: Not Applicable
Sepsis
Sepsis Screening
Sepsis Assessment: Sepsis Ruled Out
Sepsis Screen
Sepsis Screen: Sepsis Ruled Out
Date: 08/28/24
Time: 19:05
Course
Orders/Labs/Results
Orders:
Orders
08/28/24 12:50
Electrocardiogram (*1) Urgent
Reason for Study: Shortness of Breath
08/28/24 13:17
Electrocardiogram (*1) Urgent
Reason for Study: Other
Other Reason for Exam: Respiratory Distress
CR Chest - 2 Views Urgent
Comment:
Reason For Exam: respiratory distress
08/28/24 13:28
COVID-19 Antigen Urgent
Source: Nasal Swab
Complete Blood Count/With Diff Urgent
Comprehensive Metabolic Panel Urgent
Lactate Level [Lactic Acid] Urgent
Troponin I Urgent
Influenza A+B Rapid Molecular Urgent
LAURIE Source: Nasal Swab
Specimen Description:
08/28/24 13:29
Blood Culture Urgent
LAURIE Source: Blood/Venous
Specimen Description:
08/28/24 16:19
Ipratropium/Albuterol Sulfate [Duoneb] 3 ml INH R NOW STA
08/28/24 17:07
Acetaminophen [Tylenol] 1,000 mg .ROUTE .STK-MED ONE
08/28/24 17:08
Acetaminophen [Tylenol] 1,000 mg PO NOW STA
Abnormal Lab Results
08/28/24
13:28
MCH 32.1 H pg
(27.0-31.0)
Absolute Neuts (auto) 7.2 H 10^3/uL
(1.4-6.5)
Absolute Monos (auto) 0.8 H 10^3/uL
(0.1-0.6)
Carbon Dioxide 20 L mmol/L
(22-30)
Glucose 110 H mg/dl
(70-99)
Total Protein 8.3 H g/dl
(6.3-8.2)
08/28/24 13:28
08/28/24 13:28
Vital Signs
Initial and Last Documented VS:
Initial Vital Signs
Temp Pulse Resp BP Pulse Ox
101 F H 93 16 158/82 98
08/28/24 13:13 08/28/24 13:13 08/28/24 13:13 08/28/24 13:13 08/28/24 13:13
Last Documented Vital Signs
Temp Pulse Resp BP Pulse Ox
101 F H 112 20 151/95 95
08/28/24 13:13 08/28/24 16:48 08/28/24 16:48 08/28/24 16:48 08/28/24 16:48
MDM/Problems Addressed
MDM/Problems Addressed:
Clinical presentation consistent with left lower lobe pneumonia. Although chest x-ray is unrevealing she has clearly focal adventitious lung sounds, particular given her underlying immune compromise with prior lymphoma and splenectomy we will treat
this with antibiotics as a presumed bacterial pneumonia particular given negative COVID and negative flu
*Critical Care Note
Total Time (30-74mins, 75-104mins- exclusive of procedures): Not Applicable
ED Attending Note
-
Portions of this chart may have been created with voice recognition software.� Occasional wrong word or��sound alike� substitutions may have occurred due to the inherent limitations of voice recognition software.
Discharge Plan
Departure
Patient Disposition: Home (Routine Discharge)
Date of Disposition: 08/28/24
Time of Disposition: 16:24
Patient with high blood pressure during this ER visit?: No
Discharge Problem:
Left lower lobe pneumonia
Instructions: Pneumonia
Prescriptions:
New
cefdinir 300 mg capsule
300 mg PO Q12H 5 Days Qty: 10 0RF
doxycycline hyclate 100 mg capsule
100 mg PO BID 5 Days Qty: 10 0RF
No Action
zolpidem 10 MG tablet
10 mg PO HS
losartan 50 mg Tablet
50 mg PO DAILY
escitalopram oxalate [Lexapro] 10 mg Tablet
10 mg PO DAILY
Collagen Skin Renewal 30-833.3 mg Tablet
1 tab PO DAILY
Super Beets
1 packet PO DAILY
Turmeric Powder
1 packet PO DAILY
valacyclovir 500 mg Tablet
1,000 mg PO TID Qty: 20 0RF
cefdinir 300 mg capsule
300 mg PO Q12H Qty: 10 0RF
Eliquis 5 mg tablet
5 mg PO BID Qty: 60 0RF
Rx Instructions:
take 10mg BID last dose 04/28/24 in the evening and start 5mg BID in the morning of 04/29/24
Referrals:
UNKNOWN - PT DOES,NOT KNOW [Unknown Provider] -
Interventions
Interventions:
*Risk Screen - Suicide Last Done: 08/28/24 13:13
*Neglect/Abuse Screening Last Done: 08/28/24 13:13
*Nursing Disposition Last Done: 08/28/24 17:18
ED- Cardiac Assessment Last Done: 08/28/24 17:16
ED- Pulmonary Assessment Last Done: 08/28/24 17:16
Discharge Date and Time
Discharge Date/Time: 08/28/24 17:19
Print Language: POLISH
[2024-08-28] MEDS: DUONEB 3 ML INH (16:31)
[2024-08-28 16:48] VITALS: BP 151/95
[2024-08-28] MEDS: TYLENOL 1000 MG PO (17:08)
== END 2024-08-28 17:19 | disposition home or self-care (01) ==
LOC: EMR 12:48
PROVIDERS: Student in an Organized Health Care Education/Training Program; EMERGENCY PHYSICIAN Emergency Medicine; FAMILY PHYSICIAN Internal Medicine
DX: J18.9 Pneumonia, unspecified organism (principal); Z87.891 Personal history of nicotine dependence; Z11.52 Encounter for screening for COVID-19
CPT/HCPCS: 99285; 94640; 71046; 80053; 83605; 84484; 85025; 87040; 87502; 87811; 93005

== ENCOUNTER 2024-09-06 20:41 | Observation (INO) | payer OTHER, SELFPAY ==
[2024-09-06 14:32] VITALS: BP 165/80
[2024-09-06] MEDS: SOLU-CORTEF 200 MG IV (17:35)
[2024-09-06] MEDS: TORADOL 15 MG IV (17:35)
[2024-09-06] MEDS: NSS 1000 IV (17:36)
[2024-09-06] MEDS: VENTOLIN NEBULES 2.5 MG INH (17:37)
[2024-09-06] MEDS: BENADRYL 50 MG IV (17:37)
[2024-09-06] MEDS: ROBITUSSIN AC 10 ML PO (17:38)
[2024-09-06 17:54] LABS: % Basophils 0.4 % (0-2); % Eosinophils 0.4 % (0-6); % Immature Granulocytes 0.3 % (0-0.5); % Lymphocytes 32.1 % (20.5-51.1); % Monocytes 7.9 % (1.7-9.3); % Neutrophils 58.9 % (42.2-75.2); Absolute Lymphocytes 3.5 10^3/uL (1.2-3.4); Absolute Monocytes 0.9 10^3/uL (0.1-0.6); Absolute Neutrophils 6.4 10^3/uL (1.4-6.5); Hematocrit 33.7 % (37.0-47.0); Mean Corp Hgb Conc. 35.6 g/dL (33.0-37.0); Mean Corpuscular Hgb 32.1 pg (27.0-31.0); Mean Corpuscular Volume 90.1 fL (81.0-99.0); Nucleated Red Blood Cells % 0 %; Platelet Count 554 10^3/uL (130-400); Red Blood Cell Count 3.74 10^6/uL (4.20-5.40); Red Cell Dist. Width 13.1 % (11.5-14.5); White Blood Cell Count 10.9 10^3/uL (4.8-10.8)
[2024-09-06 18:10] LABS: ALT (SGPT) 19 U/L (0-35); AST (SGOT) 19 U/L (14-36); Albumin 3.7 g/dl (3.5-5.0); Alkaline Phosphatase 47 U/L (38-126); Blood Urea Nitrogen 12 mg/dl (7-17); Calcium 9.2 mg/dl (8.4-10.2); Carbon Dioxide 23 mmol/L (22-30); Chloride 107 mmol/L (98-107); Glucose 93 mg/dl (70-99); Magnesium 1.9 mg/dl (1.6-2.3); Sodium 138 mmol/L (135-145); Total Bilirubin 0.6 mg/dl (0.2-1.3); Total Protein 6.8 g/dl (6.3-8.2); eGFR > 60.00
[2024-09-06 18:34] LABS: COVID-19 Antigen Negative (Negative)
--- NOTE | 2024-09-06 18:48 | ED.GENMED ---
History of Present Illness
General
Chief Complaint: Breathing Problem
Source: patient
Exam Limitations: none
Time Seen by Provider: 09/06/24 16:18
Nursing documentation reviewed up to this point in time: agreed with
History of Present Illness
History of Present Illness:
Patient with history of pulmonary embolism diagnosed in April 2024, currently on Eliquis, diagnosed with possible pneumonia 10 days ago on antibiotics, returns to ED with worsening cough and shortness of breath, along with decreased appetite
despite taking antibiotics. Denies fever. Denies nausea, vomiting, or diarrhea. Denies headache. Denies rash. Denies back pain. Denies leg pain or swelling.
Past History
Past History
ED Past Medical History: Cancer (Hodgkin's), HTN, Psychiatric (Depression) and Other (Hodgkins, 7 spontaneous Pneumothorax, Migraine)
ED Past Surgical History: Other (Splenectomy)
Social History
Tobacco: Former smoker
Alcohol: Occasional
Drug: None
Personal:
Living: with family
Employment: Not employed
Family History
Family History: Other (Noncontributory)
Review of Systems
Review of Systems
Allergies reviewed?: Yes
All Other Systems: ROS reviewed and negative except as documented in HPI and ROS
Constitutional: Reports no symptoms
Respiratory: Reports cough and trouble breathing
Cardiac: Reports no symptoms
ABD/GI: Denies abdominal pain, vomiting or diarrhea
: Reports no symptoms
Musculoskeletal: Reports no symptoms
Skin: Reports no symptoms
Neurological: Reports no symptoms
Phy Exam
Physical Exam
Physical Exam:
Physical Exam
General: moderate distress, not acutely ill. afebrile.
Head: nc/at. eomi
Neck: supple. no meningeal signs.
Heart: s1/s2 regular rate and rhythm, no murmur.
Lungs: mild respiratory distress. rhonchi bilaterally
Abdomen: normal bowel sounds. not tender.
Neuro: alert and oriented x 3. no focal neurological deficits
Skin: no rash
Psychiatric: well kept. interactive and cooperative
Extremities: no edema. no calf tenderness.
Scores
Heart Failure Risk
Heart Failure Risk Score: Not Applicable
Course
Orders/Labs/Results
Orders:
Orders
09/06/24 Dinner
Regular
At Your Request: Full Participation
09/06/24 16:37
CT Chest PE Study Urgent
Comment:
Reason For Exam: cough/sob
0.9% Sodium Chloride 1000 ml [Nss] 1,000 ml IV BOLUS
Albuterol Nebs [Ventolin Nebules] 2.5 mg INH R NOW STA
Ketorolac [Toradol] 15 mg IV NOW STA
09/06/24 16:39
Guaifenesin/Codeine Solution [Robitussin AC] 10 ml PO NOW STA
09/06/24 17:14
Diphenhydramine [Benadryl] 50 mg IV NOW STA
Hydrocortisone Sod Succinate [Solu-Cortef] 200 mg IV NOW STA
09/06/24 17:32
COVID-19 Antigen Urgent
Source: Nasal Swab
Complete Blood Count/With Diff Urgent
Comprehensive Metabolic Panel Urgent
Magnesium Urgent
Influenza A+B Rapid Molecular Urgent
LAURIE Source: Nasal Swab
Specimen Description:
09/06/24 20:14
Admit/Transfer Patient As Directed
Co-Sign Provider:
Level of Care: Observation services
Assign to:: Medical/Surgical
Physician / Group: Karel Huang
Diagnosis: Bronchitis
09/06/24 20:15
Code Status As Directed
Resuscitation Status: Full Code
PRN Pain Medication Management As Directed
May give lesser potent ordered pain med per pt: Yes
preference::
Protocol:: Medication orders for pain may be administered in a
manner that supports deferring to patient preference
when the pt is:
- Requesting an ordered lesser potent pain medication.
Least to most potent pain medications are defined
as: acetaminophen < NSAID < tramadol < opioids
(morphine, oxycodone, hydromorphone).
- Requesting a lesser dose of the same medication IF
ORDERED.
- Requesting a less intrusive route of administration
if both routes are prescribed by the provider (PO <
IV).
09/06/24 22:38
Apixaban [Eliquis] 5 mg PO BID
Ipratropium/Albuterol Sulfate [Duoneb] 3 ml INH R Q4HPRN PRN
09/06/24 22:38
Activity As Directed
Activity Level: Ambulate
Intake/ Output As Directed
Frequency: Per unit guidelines
Vital Signs As Directed
Frequency: Per unit guidelines
Weight As Directed
Frequency: Once
Comment: on admission
09/07/24 02:00
Dexamethasone Sod Phosphate [Decadron] 4 mg IV Q8H
09/07/24 06:29
Complete Blood Count/With Diff IN AM
09/07/24 08:00
Ipratropium/Albuterol Sulfate [Duoneb] 3 ml INH R QID
Abnormal Lab Results
09/06/24
17:32
WBC 10.9 H 10^3/uL
(4.8-10.8)
RBC 3.74 L 10^6/uL
(4.20-5.40)
Hct 33.7 L %
(37.0-47.0)
MCH 32.1 H pg
(27.0-31.0)
Plt Count 554 H 10^3/uL
(130-400)
Absolute Lymphs (auto) 3.5 H 10^3/uL
(1.2-3.4)
Absolute Monos (auto) 0.9 H 10^3/uL
(0.1-0.6)
09/06/24 17:32
09/06/24 17:32
Vital Signs
Initial and Last Documented VS:
Initial Vital Signs
Pulse Resp BP Pulse Ox
71 16 165/80 98
09/06/24 14:32 09/06/24 14:32 09/06/24 14:32 09/06/24 14:32
Last Documented Vital Signs
Temp Pulse Resp BP Pulse Ox
98.5 F 72 16 151/82 97
09/07/24 07:30 09/07/24 11:24 09/07/24 11:24 09/07/24 08:26 09/07/24 11:24
MDM/Problems Addressed
MDM/Problems Addressed:
CT PE study: No acute findings.
Unfortunately, patient still remains symptomatic, with mild respiratory distress with inability to take full breath. History and exam concerning for likely bronchitis, failed outpatient therapy. As such, patient will be admitted for further
evaluation and treatment, including continual nebulizer treatment, IV steroids, and IV hydration.
*Critical Care Note
Total Time (30-74mins, 75-104mins- exclusive of procedures): Not Applicable
ED Attending Note
-
Portions of this chart may have been created with voice recognition software.� Occasional wrong word or��sound alike� substitutions may have occurred due to the inherent limitations of voice recognition software.
Discharge Plan
Departure
Patient Disposition: Admit
Date of Disposition: 09/06/24
Time of Disposition: 19:33
Presentation/result/management discussed w/ accepting MD/DO: Hospitalist
Discharge Problem:
Bronchitis
Interventions
Interventions:
*Risk Screen - Suicide Last Done: 09/06/24 22:44
*General Assessment Last Done: 09/06/24 17:52
*Neglect/Abuse Screening Last Done: 09/06/24 14:32
*ED- Fall Risk Assessment Last Done: 09/06/24 19:15
*ED COVID-19 Vaccine History Last Done: 09/06/24 17:52
*Nursing Disposition Last Done: 09/06/24 22:35
ED- Cardiac Assessment Last Done: 09/06/24 21:01
ED- Pulmonary Assessment Last Done: 09/06/24 21:01
Discharge Date and Time
Discharge Date/Time: 09/06/24 22:35
[2024-09-06 19:36] VITALS: BMI 25.1
--- NOTE | 2024-09-06 19:41 | HPS.HSE ---
Family Physician
-
Family Physician: Lv Proctor
Chief Complaint
-
cough and shortness of breath
History of Present Illness
Patient is a 69-year-old female with past medical history significant for hypertension, anxiety and depression and Hx subsegmental pulmonary embolism who presented to [facility] ED for evaluation of worsening productive cough and shortness of breath.
Patient reports symptoms started approximately 3-3.5 weeks ago. She reports consistent productive cough with shortness of breath. She does report having intermittent fevers, chills, nausea, vomiting and diarrhea during the past 3 weeks. She was seen
in ED 10 days ago and discharged with antibiotics that were ineffective. Denies chest pain, constipation or urinary symptoms.
Medical History
Past Medical History
Past Medical History: Reports Other
Additional Past Medical History:
hypertension
anxiety and depression
subsegmental pulmonary embolism
spontaneous Pneumothorax
Migraine
NHL in remission
Past Surgical History: Reports Other
Additional Past Surgical History:
splenectomy
Social History
Tobacco: Former Smoker
Alcohol: Daily (1-2 glasses of wine nightly, has not drank since being sick )
Drug: None
Personal:
Employment: Employed
Family History
Family History: Not pertinent
Allergies / Home Medications
Allergies reflects when Allergies were last updated in [facility].
Home Medications with original date entered in [facility]
Allergy/Medication List:
Allergies
Allergy/AdvReac Type Severity Reaction Status Date / Time
aspirin Allergy stomach Verified 09/06/24 14:31
pain
Cephalosporins Allergy allergy to Verified 09/06/24 14:31
penicillin
hydromorphone [From Dilaudid] Allergy Itching Verified 09/06/24 14:31
hydroxyzine Allergy not to Verified 09/06/24 14:31
take d/t
type of
migraine
pt has
Iodinated Contrast Media Allergy Swelling, Verified 09/06/24 14:31
hives
levofloxacin [From Levaquin] Allergy pustules Verified 09/06/24 14:31
on neck
NSAIDS (Non-Steroidal Allergy Stomach Verified 09/06/24 14:31
Anti-Inflamma pain
penicillin V Allergy Swelling Verified 09/06/24 14:31
Penicillins Allergy Swelling Verified 09/06/24 14:31
Salicylates * Allergy asa-stomach Verified 09/06/24 14:31
pains
sumatriptan Allergy imitrex Verified 09/06/24 14:31
allergy
sumatriptan succinate Allergy heart Verified 09/06/24 14:31
[From Imitrex] palpitations,lump
in throat
feeling
vancomycin Allergy Itching Verified 09/06/24 14:31
Home Medications
zolpidem 10 mg tablet 10 mg PO HS Sleep 04/01/17
Super Beets 1 packet PO DAILY Supplement 04/22/24
Turmeric Powder 1 packet PO DAILY Supplement 04/22/24
ascorbic acid 30 mg-collagen, hydrolyzed 833.3 mg tablet (Collagen Skin Renewal) 1 tab PO DAILY Supplement 04/22/24
escitalopram oxalate 10 mg tablet (Lexapro) 10 mg PO DAILY Mental Health/Anxiety 04/22/24
losartan 50 mg tablet 50 mg PO DAILY Blood Pressure 04/22/24
apixaban 5 mg tablet (Eliquis) 5 mg PO BID #60 tabs 04/26/24
acetaminophen 325 mg tablet (Tylenol) 650 mg PO Q6HPRN PRN mild pain 09/06/24
polyethylene glycol 3350 17 gram oral powder packet (Miralax) 8.5 g PO DAILYPRN PRN constipation 09/06/24
Review of Systems
-
History Source: Patient
Constitutional: Reports No Symptoms
EENT: Reports No Symptoms
Respiratory: Reports Cough (productive ) and Trouble Breathing (shortness of breath )
Cardiac: Reports No Symptoms
Abdomen/GI: Reports Nausea, Vomiting and Diarrhea
: Reports No Symptoms
Musculoskeletal: Reports No Symptoms
Skin: Reports No Symptoms
Neurological: Reports No Symptoms
Endocrine: Reports No Symptoms
Hematologic/Lymphatic: Reports No Symptoms
Psych: Reports No Symptoms
Physical Exam
Vital Signs
Vital Signs
Pulse Resp BP Pulse Ox
78 19 165/80 97
09/06/24 17:48 09/06/24 17:48 09/06/24 14:32 09/06/24 17:48
Physical Exam
General: Well Developed, Well Nourished, No Apparent Distress, Comfortable and Conversant
HEENT: NormoCephalic, Moist mucous membranes, Atraumatic, [place] Conjunctivae, Nose Appears Normal and Ears Appear Normal
Respiratory: Clear
Cardiac: S1/S2 and Regular Rhythm
Breast: Deferred by me
GI: Soft, Non Tender, Non Distended and Normal Bowel Sounds; No Organomegaly
Rectal: Deferred by Provider
Genito-urinary: Deferred by me
Musculoskeletal: No Clubbing, No Cyanosis and No Edema
Skin: IV/Catheter Site
Neuro: Awake, Alert, AO x 3 and Nonfocal/grossly intact
Psych: Calm and Intact Judgment/Insight
Laboratory Results
-
09/06/24 17:32
09/06/24 17:32
Laboratory Results
Total Bilirubin 0.6 mg/dl (0.2-1.3) 09/06/24 17:32
AST 19 U/L (14-36) 09/06/24 17:32
ALT 19 U/L (0-35) 09/06/24 17:32
Alkaline Phosphatase 47 U/L (38-126) 09/06/24 17:32
Data Reviewed
-
CT Scan: Report Reviewed by me (Chest: 1. No evidence of pulmonary embolism. 2. No significant abnormality identified in the chest, as described above.)
Lab Data: Labs Reviewed by me (WBC 10.9, )
Impression/Plan
-
IMPRESSION/PLAN:
#Bronchitis
#cough and shortness of breath
Chest CT: 1. No evidence of pulmonary embolism.
2. No significant abnormality identified in the chest, as described above.
- Admit to med/surg
- IV dexamethasone
- DuoNebs QID
#hypertension
- continue losartan
#anxiety and depression
- continue escitalopram
#subsegmental pulmonary embolism
- continue Eliquis
Code status: full code
DVT prophylaxis: Eliquis
--- NOTE | 2024-09-06 20:17 | W.PN.UPDATE ---
Update Note
Progress Note Update
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
69-year-old female past medical history of Hodgkin's lymphoma status post pleurectomy, migraines, depression, hypertension, shingles, pulmonary embolism on Eliquis presenting with productive cough and shortness of breath, low-grade fever for the
past several weeks despite coming here on 08/28 and being treated with antibiotic without improvement.
She had vomiting and diarrhea 2 days ago which was resolved.
Vital signs show blood pressure 160s.��Bilateral expiratory wheezing on exam.�
Labs show leukocytosis.
Chest x-ray showed no acute process.� CT PE shows no acute process.
Patient with acute bronchitis.� flory Lemon.� Likely had vomiting and diarrhea from antibiotic which is now resolved.
[2024-09-06 22:43] VITALS: BP 165/79; BMI 24.7
[2024-09-06] MEDS: ELIQUIS 5 MG PO (23:08)
[2024-09-06] MEDS: AMBIEN 10 MG PO (23:33)
--- NOTE | 2024-09-07 00:43 | PTCARENOTE ---
Pt aaox3 able to make her needs known. Pt encouraged to call for help as needed when oob.Pt oriented to room & call king in reach.Plan of care continued.
[2024-09-07] MEDS: DECADRON 4 MG IV ×2 (01:45→09:34)
[2024-09-07] MEDS: FLUSH (NSS) 1 FLUSH IV (01:47)
[2024-09-07 01:53] VITALS: BP 143/66
--- NOTE | 2024-09-07 06:27 | DOWNTIME ---
There was a [employer] Person Downtime on 09/07/2024 from 0200 to 09/08/2023 at 0318 . Downtime documentation of patient's care, including medication administrations, has been reconciled in the electronic record per guidelines. Refer to the
patient's paper chart under the miscellaneous tab to see printed paper medication records and downtime forms.
[2024-09-07 07:30] VITALS: BP 151/82
[2024-09-07] MEDS: DUONEB 3 ML INH ×2 (07:34→11:19)
[2024-09-07 07:44] LABS: % Basophils 0.1 % (0-2); % Immature Granulocytes 0.6 % (0-0.5); % Lymphocytes 11.1 % (20.5-51.1); % Monocytes 0.4 % (1.7-9.3); % Neutrophils 87.8 % (42.2-75.2); Absolute Immature Granulocytes 0.1 10^3/uL (0-0.05); Absolute Lymphocytes 1.2 10^3/uL (1.2-3.4); Absolute Neutrophils 9.2 10^3/uL (1.4-6.5); Hematocrit 35.1 % (37.0-47.0); Hemoglobin 12.3 g/dL (12.0-16.0); Mean Corpuscular Hgb 31.5 pg (27.0-31.0); Mean Platelet Volume 9.3 fL (7.4-10.4); Nucleated Red Blood Cells % 0 %; Platelet Count 586 10^3/uL (130-400); Red Cell Dist. Width 13.1 % (11.5-14.5); White Blood Cell Count 10.5 10^3/uL (4.8-10.8)
[2024-09-07] MEDS: ELIQUIS 5 MG PO (08:25)
[2024-09-07] MEDS: LEXAPRO 10 MG PO (08:26)
[2024-09-07] MEDS: COZAAR 50 MG PO (08:26)
--- NOTE | 2024-09-07 15:01 | W.DS.TRANS ---
DC Summary - [employer]ive [employer] Therapist
-
Discharge Instructions:
Discharge Diagnosis/Procedures Asthmatic bronchitis.
Recent URI
Diet Regular
Instructions:
Stand-Alone Forms:
Changes to Home Medications: Yes
Discharge Medications:
DC Medications w/original date entered in [employer]
zolpidem 10 mg tablet 10 mg PO HS Sleep 04/01/17
Super Beets 1 packet PO DAILY Supplement 04/22/24
Turmeric Powder 1 packet PO DAILY Supplement 04/22/24
ascorbic acid 30 mg-collagen, hydrolyzed 833.3 mg tablet (Collagen Skin Renewal) 1 tab PO DAILY Supplement 04/22/24
escitalopram oxalate 10 mg tablet (Lexapro) 10 mg PO DAILY Mental Health/Anxiety 04/22/24
losartan 50 mg tablet 50 mg PO DAILY Blood Pressure 04/22/24
apixaban 5 mg tablet (Eliquis) 5 mg PO BID #60 tabs 04/26/24
acetaminophen 325 mg tablet (Tylenol) 650 mg PO Q6HPRN PRN mild pain 09/06/24
polyethylene glycol 3350 17 gram oral powder packet (Miralax) 8.5 g PO DAILYPRN PRN constipation 09/06/24
albuterol sulfate 90 mcg/actuation breath activated powder inhaler 2 inh inhalation Q6H PRN shortness of breath or wheezing #1 ea 09/07/24
pantoprazole 20 mg tablet,delayed release (Protonix) 20 mg PO DAILY #30 tabs 09/07/24
prednisone 10 mg tablet 10 mg PO DIRECTED #20 tabs 09/07/24
Home Medication Changes
Albuterol and steroid taper
Pending Results: No
[2024-09-07 15:30] VITALS: BP 152/72
[2024-09-07] MEDS: DUONEB INH (15:36)
--- NOTE | 2024-09-07 15:51 | CM ---
Met with patient to obtain information for assessment. Patient stated that she lives in a multi-story townhouse with three steps to enter by herself. She described herself as independent with her ADLs, personal care, dressing and bathing. 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 Patient is still driving and can transport to appointments and does her own shopping. She has no DME. She has never had VN. She has not been to a SNF.
Patient has a prescription plan and uses, [facility] in [place] for all of her medications.
Patient's PCP is, Lv Proctor.
Plan: Case management will continue to follow and assist with discharge planning. Home no needs.
== END 2024-09-07 15:45 | disposition home or self-care (01) ==
LOC: 4 EAST ACU 20:41
PROVIDERS: Nurse Practitioner Family; ADMITTING PHYSICIAN Hospitalist; ATTENDING PHYSICIAN Internal Medicine; EMERGENCY PHYSICIAN Emergency Medicine; FAMILY PHYSICIAN Family Medicine
DX: J40 Bronchitis, not specified as acute or chronic (principal); R06.02 Shortness of breath; Z87.891 Personal history of nicotine dependence; Z79.01 Long term (current) use of anticoagulants; I26.99 Other pulmonary embolism without acute cor pulmonale; I10 Essential (primary) hypertension
CPT/HCPCS: 71275; 80053; 83735; 85025; 87502; 87811; 94640; 96374; 96375; 99284; Q9967